=== PATIENT | male | born 1985 ===

== ENCOUNTER 2019-07-22 18:12 | Emergency (ER) | payer SELFPAY ==
[~2019-07-22] VITALS: Ht 177.8 cm; Wt 72.6 kg
[2019-07-22 18:40] VITALS: BP 123/74
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
[2019-07-22] MEDS ORDERED: Bacitracin Oint UD TOPIC ONE (19:00)
[2019-07-22] MEDS ORDERED: BACITRACIN-P28.35 GM TP (19:11)
[2019-07-22 19:21] VITALS: BP 123/74
--- NOTE | 2019-07-22 19:21 | NUR ---
ED Nurse Note: Pt cleared by health care Provider for discharge. DC instructions/prescription was given and explained to pt and verbalized understanding of teachings. All medical deviecs such as ID band removed. Pt is AAO x4, ambulatory and left with all personal belongings.
== END 2019-07-22 19:20 | disposition home or self-care (01) ==
LOC: EMR 19:20
DX: S81.801D Unspecified open wound, right lower leg, subsequent encounter (principal); Z48.00 Encounter for change or removal of nonsurgical wound dressing; W34.00XD Accidental discharge from unspecified firearms or gun, subsequent encounter
CPT/HCPCS: 99282